=== PATIENT | male | born 1995 | race Caucasian/White ===

== ENCOUNTER 2017-08-30 05:42 | Emergency (ER) | payer SELFPAY ==
[~2017-08-30] VITALS: Ht 180.3 cm; Wt 69.8 kg
[~2017-08-30 05:42] MED LIST: CEPH500 PO; CODACE30 PO; HYDACE5 PO; IBUP400 PO; IBUP600 PO; Naprosyn500 MG PO; Nix Lice Treatm59 ML TOP; Norco 5-325 Ta1 EACH PO; Percocet 5-3251 EACH PO; RXCODACET PO; TRAM50 PO; Ultram50 MG PO; Veetids 500500 MG PO
[2017-08-30] MEDS ORDERED: Bactrim Ds Tab1 EACH PO (07:09)
[2017-08-30] MEDS ORDERED: Keflex500 MG PO (07:09)
== END 2017-08-30 07:32 | disposition home or self-care (01) ==
LOC: ER 05:42
DX: L03.012 Cellulitis of left finger (principal); L03.317 Cellulitis of buttock; L03.313 Cellulitis of chest wall; L03.116 Cellulitis of left lower limb; L03.115 Cellulitis of right lower limb; F17.200 Nicotine dependence, unspecified, uncomplicated; Z79.2 Long term (current) use of antibiotics
CPT/HCPCS: 99283

== ENCOUNTER 2019-08-03 23:17 | Emergency (ER) | payer OTHER ==
[~2019-08-03] VITALS: Ht 172.7 cm; Wt 58.1 kg
[~2019-08-03 23:17] MED LIST changes: +Bactrim Ds Tab1 EACH PO; +Keflex500 MG PO
[2019-08-03] MEDS ORDERED: Amoxicillin875 MG PO (23:26)
== END 2019-08-03 23:48 | disposition home or self-care (01) ==
LOC: ER 23:17
DX: K04.7 Periapical abscess without sinus (principal); F17.210 Nicotine dependence, cigarettes, uncomplicated
CPT/HCPCS: 99282

== ENCOUNTER 2020-10-28 23:22 | Emergency (ER) | payer OTHER ==
[~2020-10-28] VITALS: Ht 177.8 cm; Wt 63.5 kg
[~2020-10-28 23:22] MED LIST changes: +Amoxicillin875 MG PO
== END 2020-10-29 00:47 | disposition home or self-care (01) ==
LOC: ER 23:22
DX: K08.89 Other specified disorders of teeth and supporting structures (principal); F17.200 Nicotine dependence, unspecified, uncomplicated
CPT/HCPCS: 99282; J1885

== ENCOUNTER 2021-11-17 20:48 | Emergency (ER) | payer OTHER ==
[~2021-11-17] VITALS: Ht 177.8 cm; Wt 64.4 kg
== END 2021-11-17 21:52 | disposition home or self-care (01) ==
LOC: ER 20:48
DX: K02.9 Dental caries, unspecified (principal); K05.10 Chronic gingivitis, plaque induced; F17.210 Nicotine dependence, cigarettes, uncomplicated
CPT/HCPCS: A9270

== ENCOUNTER 2022-01-30 16:47 | Emergency (ER) | payer OTHER ==
[~2022-01-30] VITALS: Ht 177.8 cm; Wt 59.0 kg
[2022-01-30 17:39] LABS: BASOPHILS ABSOLUTE AUTO 0.02 K/mm3 (0.00-0.23); BASOPHILS PERCENT AUTO 0 % (0-2); EOSINOPHILS ABSOLUTE AUTO 0.19 K/mm3 (0.00-0.68); EOSINOPHILS PERCENT AUTO 3 % (0-6); Hematocrit 48.3 % (37.0-53.0); Hemoglobin 16.9 g/dL (13.5-17.5); IMMATURE GRAN ABSOLUTE AUTO 0.01 K/mm3 (0.00-0.10); IMMATURE GRAN PERCENT AUTO 0 % (0-1); LYMPHOCYTES ABSOLUTE AUTO 2.33 K/mm3 (0.84-5.20); LYMPHOCYTES PERCENT AUTO 30 % (21-46); MONOCYTES ABSOLUTE AUTO 0.42 K/mm3 (0.16-1.47); MONOCYTES PERCENT AUTO 5 % (4-13); Mean Corpuscular HGB 30.1 pg (26.0-34.0); Mean Corpuscular Volume 86 fL (80-100); NEUTROPHILS ABSOLUTE AUTO 4.77 K/mm3 (1.96-9.15); NEUTROPHILS PERCENT AUTO 62 % (41-73); Platelet Count 316 K/mm3 (150-400); RDW Coefficient Variation 12.2 % (11.7-14.2); RDW Standard Deviation 38.5 fL (35.1-46.3); Red Blood Cell Count 5.62 M/mm3 (4.30-5.90); White Blood Cell Count 7.74 K/mm3 (4.00-11.30)
[2022-01-30 17:54] LABS: Albumin, Blood 4.4 g/dL (3.4-5.0); Albumin/Globulin Ratio 1.2 (0.8-1.8); Bilirubin, Total 1.7 mg/dL (0.1-1.0); Bun/Creatinine Ratio 17.2 (12.0-20.0); Calcium, Blood 9.7 mg/dL (8.5-10.1); Creatinine, Blood 0.87 mg/dL (0.60-1.20); Globulin, Blood 3.6 g/dL (2.2-4.0); Potassium, Blood 4.1 mmol/L (3.5-5.5)
== END 2022-01-30 20:50 | disposition left against medical advice (07) ==
LOC: ER 16:47
PROVIDERS: Student in an Organized Health Care Education/Training Program
DX: R10.9 Unspecified abdominal pain (principal); Z53.21 Procedure and treatment not carried out due to patient leaving prior to being seen by health care provider
CPT/HCPCS: 80053; 85025; 99281

== ENCOUNTER 2022-02-04 15:44 | Emergency (ER) | payer OTHER ==
[~2022-02-04] VITALS: Ht 177.8 cm; Wt 59.0 kg
[2022-02-04 16:16] LABS: Source, Urine Clean Catch
[2022-02-04 17:03] LABS: Appearance, Urine Hazy (Clear); Blood, Urine 5+ (Neg); Color, Urine Yellow (P-Yellow); Glucose Qualitative, Urine Neg (Neg); Ketones, Urine Neg (Neg); Leukocyte Esterase, Urine 1+ (Neg); Nitrite, Urine Neg (Neg); Protein, Urine 3+ (Neg); Specific Gravity, Urine 1.025 (1.003-1.022); Urobilinogen, Urine 1+ (Normal)
[2022-02-04 17:42] LABS: Bilirubin, Urine 1+ (Neg)
[2022-02-04 17:46] LABS: Bacteria Mod /hpf; Mucus Light (0-Heavy); Squamous Epithelial Cells Few /hpf (Few)
[2022-02-04] MEDS ORDERED: CEPH500 PO (18:03)
== END 2022-02-04 18:15 | disposition home or self-care (01) ==
LOC: ER 15:44
PROVIDERS: Student in an Organized Health Care Education/Training Program
DX: N39.0 Urinary tract infection, site not specified (principal); F17.200 Nicotine dependence, unspecified, uncomplicated
CPT/HCPCS: 81001; 87086; 99283; A9270

== ENCOUNTER 2022-09-06 20:27 | Emergency (ER) | payer OTHER ==
[~2022-09-06] VITALS: Ht 175.3 cm; Wt 63.5 kg
[2022-09-06] MEDS ORDERED: MUPIROCIN1 G1 TOP (21:49)
== END 2022-09-06 21:44 | disposition home or self-care (01) ==
LOC: ER 20:27
DX: S50.812A Abrasion of left forearm, initial encounter (principal); F17.200 Nicotine dependence, unspecified, uncomplicated; X58.XXXA Exposure to other specified factors, initial encounter
CPT/HCPCS: 99282